=== PATIENT | female | born 1945 | race Caucasian/White ===

== ENCOUNTER 2020-07-29 09:07 | Outpatient (REF) | payer MEDICARE, SELFPAY ==
--- NOTE | ~2020-07-29 | MM_ITS ---
EXAMINATION: BONE DENSITOMETRY CLINICAL INDICATION: Age-related osteoporosis without current pathological fracture. COMPARISON: Baseline BD dated 12/05/2017. TECHNIQUE: Using a [employer]oneCast DXA System (software version: 13.1) manufactured by [employer], dual-energy x-ray absorptiometry was performed of the lumbar spine and left hip. The images are of good technical quality. Summary results are attached. FINDINGS: AP SPINE L1-L4: Current: BMD 0.765 g/cm2, Z-score -0.9, T-score -3.5, osteoporosis, 1.7% decrease from baseline (<5% change is not significant). Baseline: BMD 0.778 g/cm2. LEFT FEMUR, NECK: Current: BMD 0.579 g/cm2, Z-score -0.9, T-score -3.3, osteoporosis. Baseline: BMD 0.633 g/cm2. LEFT FEMUR, TOTAL: Current: BMD 0.623 g/cm2, Z-score -0.8, T-score -3.1, osteoporosis, 4.0% decrease from baseline (<5% change is not significant). Baseline: BMD 0.649 g/cm2. IDENTIFIED RISK FACTORS: Osteoporosis, height loss, family history (parental hip fracture), history of fracture (adult). Early menopause, secondary osteoporosis. HISTORY OF FRACTURE: Wrist. MEDICATIONS: Calcium supplements or multivitamin, vitamin D. MM/XR DEXA axial skeleton IMPRESSION: 1. DIAGNOSIS: Osteoporosis based on the lowest T-score value of -3.5 in the lumbar spine applying World Health Organization criteria. 2. 10-YEAR FRACTURE RISK PREDICTION, FRAX: Major osteoporotic fracture (clinical spine, forearm, hip or shoulder) 52.2%. Hip fracture 40.3%. 3. Treatment Recommendations: NOF guidelines recommend consideration for treatment in postmenopausal women and men age 50 and older presenting with the following: -A hip or vertebral (clinical or morphometric) fracture. -T-score less than or equal to -2.5 at the femoral neck or spine after appropriate evaluation to exclude secondary causes. -Low bone mass at the hip or spine and a 10-year fracture probability by FRAX of greater than or equal to 3% for hip fracture or greater than or equal to 20% for major osteoporotic fracture based on the [place] adapted WHO algorithm. 4. Other Recommendations: All treatment decisions require clinical judgment and consideration of individual patient factors, including patient preferences, comorbidities, previous drug use, risk factors not captured in the FRAX model (e.g. frailty, falls, vitamin D deficiency, increased bone turnover, interval significant decline in bone density) and possible under or overestimation of fracture risk by FRAX. Additional medical evaluation for secondary cause of low bone mineral density may be appropriate. FUTURE SCAN RECOMMENDATION: People with diagnosed cases of osteoporosis or at high risk for fracture should have regular bone mineral density tests. For patients eligible for Medicare, routine testing is allowed once every 2 years. The testing frequency can be increased to one year for patients who have rapidly progressing disease, those who are receiving or discontinuing medical therapy to restore bone mass, or have additional risk factors.
== END 2020-07-29 09:08 | disposition home or self-care (01) ==
LOC: HO.MAMMO 09:07
PROVIDERS: Visit Provider Internal Medicine
DX: M81.0 Age-related osteoporosis without current pathological fracture (principal); Z78.0 Asymptomatic menopausal state
CPT/HCPCS: 77080

== ENCOUNTER 2021-01-29 10:52 | Outpatient (REF) | payer MEDICARE, SELFPAY ==
--- NOTE | ~2021-01-29 | XR_ITS ---
EXAMINATION: XR CHEST CLINICAL INFORMATION: Pain in the posterior chest/back with inspiration. COMPARISON: None TECHNIQUE: 2 views of the chest were obtained. FINDINGS: Normal appearance of the cardiomediastinal silhouette. There is pulmonary hyperexpansion with biapical pleural thickening/scarring and diffuse interstitial prominence. There is a 1.3 cm radiopaque nodularity in the right lower lobe. No pleural effusion or pneumothorax. No acute osseous findings. Thoracic spondylosis. XR/XR chest 2V IMPRESSION: Hyperexpanded lungs with mild interstitial prominence raising the possibility of air trapping which could be seen with COPD or emphysema. There is a 1.3 cm pulmonary nodularity overlying the right lower lobe. Recommend further assessment of these interstitial changes and of the possible right lower lobe pulmonary nodule with a high-resolution chest CT. The report will be called to the ordering clinician by a [place] [facility] Physician Child Care Development Specialist.
[2021-01-29 11:03] LABS: MANUAL DIFF FLAG NO
[2021-01-29 12:06] LABS: Basophils Percent Auto 0.4 % (0-2); Eosinophils Percent Auto 0.6 % (0-4); Hematocrit 42.4 % (37.0-47.0); Hemoglobin 13.3 g/dl (12.0-16.0); Imm Gran Abs Auto 0.01 X10*3/uL (0.00-0.03); Imm Gran Pct Auto 0.2 % (0.0-0.4); Lymphocytes Absolute Auto 1.3 X10*3/uL (1.2-4.9); Lymphocytes Percent Auto 27.3 % (20-40); Mean Corpuscular HGB Conc 31.4 g/dl (31.0-35.0); Mean Corpuscular Hemoglobin 28.2 pg (27.0-33.0); Mean Corpuscular Volume 89.8 fL (80.0-98.0); Mean Platelet Volume 10.9 fL (9.4-12.3); Monocytes Absolute Auto 0.4 X10*3/uL (0.1-1.2); Monocytes Percent Auto 9.5 % (2-11); Neutrophils Absolute Auto 2.9 x10*3/uL (2.0-8.3); Platelet Count 206 X10*3/uL (160-400); Red Blood Count 4.72 X10*6/uL (4.20-5.50); Red Cell Distribution Width 13.9 % (11.0-16.0); White Blood Count 4.7 X10*3/uL (4.8-10.8)
[2021-01-29 12:28] LABS: Alanine Aminotransferase 9 U/L (0-31); Albumin Level 4.4 g/dL (3.5-5.0); Alkaline Phosphatase 64 U/L (39-117); Anion Gap 13 (12-20); Aspartate Amino Transferase 17 U/L (5-31); Bilirubin Total 0.7 mg/dL (0.0-1.0); Blood Urea Nitrogen 12 mg/dL (9-16); Calcium 9.4 mg/dL (8.4-10.2); Carbon Dioxide 26 mmol/L (22-29); Chloride 107 mmol/L (96-108); Cholesterol 226 mg/dL; Estimated Glomerular Filt Rate > 60; Glucose Fasting 81 mg/dL (60-99); HDL Cholesterol 71 mg/dL; LDL Cholesterol Calculated 132 mg/dl; Potassium 4.7 mmol/L (3.3-5.1); Sodium 141 mmol/L (135-145); Total Protein 6.9 g/dL (6.5-8.0); Triglycerides 119 mg/dL
[2021-01-29 12:48] LABS: Thyroid Stimulating Hormone 2.48 uIU/mL (0.32-4.0)
== END 2021-01-29 10:53 | disposition home or self-care (01) ==
LOC: HO.XRAY 10:52
PROVIDERS: PCP Internal Medicine; Visit Provider Internal Medicine
DX: Z00.00 Encounter for general adult medical examination without abnormal findings (principal); M54.50 Low back pain, unspecified; M54.6 Pain in thoracic spine; E03.9 Hypothyroidism, unspecified; R51.9 Headache, unspecified; E11.9 Type 2 diabetes mellitus without complications
CPT/HCPCS: 36415; 71046; 80048; 80053; 80061; 84443; 85025

== ENCOUNTER 2021-02-24 13:23 | Outpatient (REF) | payer MEDICARE, SELFPAY ==
--- NOTE | ~2021-02-24 | CT_ITS ---
EXAMINATION: CT CHEST WITHOUT CONTRAST CLINICAL INFORMATION: Abnormal findings on diagnostic imaging. COMPARISON: Chest film dated 01/29/2021 TECHNIQUE: Multidetector volumetric CT imaging of the chest was done. Axial MIP volume rendering provided. Sagittal and coronal reformatted images were obtained. This CT examination was performed using dose optimization techniques as appropriate, variously including the following: *Automated exposure control *Adjustment of mA and/or kV according to patient size (this includes techniques or standardized protocols for targeted exams where dose is matched to indication/reason for exam; i.e. extremities or head) *Use of iterative reconstruction technique DLP: 120 mGy-cm FINDINGS: BRINE ROOM LABORER: Unremarkable. The thoracic inlet is within normal limits. Partially visualized upper abdomen demonstrates 2 areas of low density in the region of the falciform ligament of the liver. One measuring 1.9 cm and another measuring 1.8 cm. These are low attenuation structures and may well represent cystic change. On the very last image, another probable small structure measuring 5 mm which cannot be adequately characterized. Centrally, there is no bulky adenopathy. This is a noncontrast study, but the hilar structures do not appear pathologically enlarged. Aneurysmal change of the ascending aorta. 3.6 x 3.5 cm. Imaging of the lung rvias. Right Lung: There is no significant infiltrate or effusion. Probable apical scarring which is somewhat asymmetric compared to the contralateral side. There are numerous small scattered areas of lung nodularity. The largest measures approximately 3 mm. Some of these are tubular and could represent bronchial plugging. Probable right basilar atelectasis or scarring. Left Lung: No significant infiltrate or effusion. Again, scattered areas of nodularity none of which are large. The largest may measure 4 mm. Image 60 of series 8. There is also a 4 mm nodule on image 66. The density in question on the chest film may well have represented the patient's nipple. Review of the bone windows does not demonstrate evidence for a bony lesion. Some mild loss of superior height at T3 likely minimal compression, age-indeterminate. Posterior height is well preserved. CT/CT chest wo con IMPRESSION: The density in question on chest film may well have represented the patient's nipple. No large nodule. Numerous scattered lung nodules are seen here. As described, some of these are tubular and may represent some bronchial plugging. No large area of nodularity. Probable apical scarring, right greater than left. Mild aneurysmal change of the ascending aorta. Recommendation is low-dose noncontrast CT study in 6 months for continued evaluation of the above findings Probable cystic change in the region of the falciform ligament in the liver but a smaller lesion more inferior which is incompletely imaged on the last image of the study. Consider ultrasound to evaluate the liver.
== END 2021-02-24 13:24 | disposition home or self-care (01) ==
LOC: HO.CT 13:23
PROVIDERS: PCP Internal Medicine; Visit Provider Internal Medicine
DX: R93.89 Abnormal findings on diagnostic imaging of other specified body structures (principal)
CPT/HCPCS: 71250

== ENCOUNTER 2021-09-02 10:58 | Outpatient (REF) | payer MEDICARE, SELFPAY ==
--- NOTE | ~2021-09-02 | CT_ITS ---
EXAMINATION: CT CHEST WITHOUT CONTRAST CLINICAL INFORMATION: Small pulmonary nodules. Follow-up. COMPARISON: CT chest noncontrast 02/24/2021, chest radiographs 01/29/2021 TECHNIQUE: Multidetector volumetric CT imaging of the chest was done. Axial MIP volume rendering provided. Sagittal and coronal reformatted images were obtained. This CT examination was performed using dose optimization techniques as appropriate, variously including the following: *Automated exposure control *Adjustment of mA and/or kV according to patient size (this includes techniques or standardized protocols for targeted exams where dose is matched to indication/reason for exam; i.e. extremities or head) *Use of iterative reconstruction technique DLP: 118 mGy-cm FINDINGS: LUNGS: Scattered isolated small bilateral nodularity under 4 mm are again noted. 2 nodules previously described are decreased, central medial left upper lobe, and central lateral right lower lobe, respectively. There is no interval mass or new nodularity or interval growth. No airspace consolidation or groundglass opacity. The central airways are clear. No bronchiectasis. MEDIASTINUM: No hilar or mediastinal adenopathy. Aorta are under 4 cm. Heart size normal. No pericardial effusion. PLEURA: Pleural parenchymal scarring apices, greater on right, stable AXILLA: No lymphadenopathy. UPPER ABDOMEN: Probable cyst hepatic dome under 2 cm stable. OSSEOUS STRUCTURES: Unremarkable. CT/CT chest wo con IMPRESSION: -No new or increasing nodularity or mass. -2 nodules are decreased in size from prior exam 02/24/2021. -No adenopathy or effusion. -Probable cyst hepatic dome stable. -Fleischner guidelines below. Reference: The Fleischner Society recommendations for management of incidentally detected pulmonary nodules in adults age 35 and greater are based on average nodule size and patient risk category. The recommendations do not apply to lung cancer screening, patients with immunosuppression, or patients with known primary cancer. Multiple solid nodules average size < 6 mm: Low Risk Patient: No routine follow-up. High Risk Patient: Optional CT at 12 months. Use most suspicious nodule as guide to management. Follow-up intervals may vary according to size and risk. .
== END 2021-09-02 10:59 | disposition home or self-care (01) ==
LOC: HO.CT 10:58
PROVIDERS: PCP Internal Medicine; Visit Provider Internal Medicine
DX: R91.1 Solitary pulmonary nodule (principal)
CPT/HCPCS: 71250

== ENCOUNTER 2021-09-16 11:17 | Outpatient (REF) | payer MEDICARE, SELFPAY ==
--- NOTE | ~2021-09-16 | US_ITS ---
EXAMINATION: US ABDOMEN COMPLETE CLINICAL INFORMATION: Unspecified abdominal pain. COMPARISON: None TECHNIQUE: Real-time imaging of the abdominal viscera. FINDINGS: PANCREAS: Normal. ABDOMINAL AORTA: Atherosclerotic disease. The proximal, mid, and distal segments are normal in caliber. INFERIOR VENA CAVA: Visualized portions are normal. LIVER: There are 3 cysts in the right lobe measuring 1.4 x 1.3 x 2 cm, 1.8 x 1 x 1.8 cm 0.8 x 0.6 x 0.7 cm. No other focal lesion. The liver is normal in size. The liver contour is normal. Parenchymal echogenicity is normal. There is no intrahepatic biliary duct dilatation seen. GALLBLADDER: The gallbladder is physiologically distended without evidence of stones, sludge, wall thickening or pericholecystic fluid. There is a 2 mm echogenic nonmobile nonshadowing density adjacent to the gallbladder wall questionable for a small polyp. COMMON BILE DUCT: Normal in caliber measuring 0.4 cm in diameter. RIGHT KIDNEY: Normal. No hydronephrosis. No renal calculi or focal parenchymal lesions. The kidney measures 8.7 cm in maximum dimension. LEFT KIDNEY: Normal. No hydronephrosis. No renal calculi or focal parenchymal lesions. The kidney measures 9.3 cm in maximum dimension. SPLEEN: Normal. The spleen measures 8.6 cm in maximum dimension. FREE FLUID: None. US/US abdomen complete IMPRESSION: Liver cysts. Question small gallbladder wall polyp.
== END 2021-09-16 11:18 | disposition home or self-care (01) ==
LOC: HO.US 11:17
PROVIDERS: Visit Provider Internal Medicine
DX: R10.9 Unspecified abdominal pain (principal)
CPT/HCPCS: 76700

== ENCOUNTER → 2021-12-03 14:00 | Outpatient (REF) | payer MEDICARE, SELFPAY ==
--- NOTE | 2021-12-03 14:07 | ECG_ITS ---
Test Reason : preop Blood Pressure : / mmHG Vent. Rate : 068 BPM Atrial Rate : 068 BPM P-R Int : 142 ms QRS Dur : 080 ms QT Int : 400 ms P-R-T Axes : 073 072 040 degrees QTc Int : 425 ms Normal sinus rhythm Normal ECG No previous ECGs available Referred By: Jorge Walton Electronically Signed By:CHANG CARRASCO
[2021-12-03 14:26] LABS: MANUAL DIFF FLAG NO
[2021-12-03 14:40] LABS: Basophils Percent Auto 0.4 % (0-2); Eosinophils Percent Auto 0.7 % (0-4); Hemoglobin 12.8 g/dl (12.0-16.0); Imm Gran Abs Auto 0.01 X10*3/uL (0.00-0.03); Imm Gran Pct Auto 0.2 % (0.0-0.4); Lymphocytes Percent Auto 21.9 % (20-40); Mean Corpuscular Hemoglobin 28.8 pg (27.0-33.0); Mean Corpuscular Volume 89.9 fL (80.0-98.0); Mean Platelet Volume 10.6 fL (9.4-12.3); Monocytes Absolute Auto 0.4 X10*3/uL (0.1-1.2); Monocytes Percent Auto 9.2 % (2-11); Neutrophils Percent Auto 67.6 % (45-73); Platelet Count 167 X10*3/uL (160-400); Red Blood Count 4.45 X10*6/uL (4.20-5.50); White Blood Count 4.5 X10*3/uL (4.8-10.8)
[2021-12-03 14:42] LABS: Prothrombin Time 11.7 SEC (10.0-13.1)
[2021-12-03 14:45] LABS: Partial Thromboplastin Time 37.2 SEC (26.0-36.4)
== END ==
LOC: HO.CARD 14:00
PROVIDERS: PCP Internal Medicine; Visit Provider Internal Medicine
DX: Z01.818 Encounter for other preprocedural examination (principal); Z13.0 Encounter for screening for diseases of the blood and blood-forming organs and certain disorders involving the immune mechanism
CPT/HCPCS: 36415; 85025; 85610; 85730; 93005

== ENCOUNTER 2022-04-05 11:20 | Outpatient (REF) | payer MEDICARE, SELFPAY ==
[2022-04-05 11:46] LABS: MANUAL DIFF FLAG NO
[2022-04-05 12:00] LABS: Basophils Percent Auto 0.5 % (0-2); Eosinophils Absolute Auto 0.1 X10*3/uL (0.0-0.4); Eosinophils Percent Auto 1.2 % (0-4); Hematocrit 44.3 % (37.0-47.0); Hemoglobin 14.4 g/dl (12.0-16.0); Imm Gran Abs Auto 0.04 X10*3/uL (0.00-0.03); Lymphocytes Percent Auto 24.4 % (20-40); Mean Corpuscular HGB Conc 32.5 g/dl (31.0-35.0); Mean Corpuscular Volume 89.1 fL (80.0-98.0); Mean Platelet Volume 10.5 fL (9.4-12.3); Monocytes Absolute Auto 0.3 X10*3/uL (0.1-1.2); Monocytes Percent Auto 7.4 % (2-11); Neutrophils Absolute Auto 2.7 x10*3/uL (2.0-8.3); Neutrophils Percent Auto 65.5 % (45-73); Platelet Count 176 X10*3/uL (160-400); Red Blood Count 4.97 X10*6/uL (4.20-5.50); Red Cell Distribution Width 13.6 % (11.0-16.0); White Blood Count 4.1 X10*3/uL (4.8-10.8)
[2022-04-05 12:49] LABS: Alanine Aminotransferase 11 U/L (0-31); Albumin Level 4.4 g/dL (3.5-5.0); Alkaline Phosphatase 76 U/L (39-117); Anion Gap 12 (12-20); Aspartate Amino Transferase 18 U/L (5-31); Bilirubin Total 0.9 mg/dL (0.0-1.0); Blood Urea Nitrogen 13 mg/dL (9-16); Calcium 9.6 mg/dL (8.4-10.2); Carbon Dioxide 29 mmol/L (22-29); Chloride 104 mmol/L (96-108); Cholesterol 222 mg/dL; Estimated Glomerular Filt Rate > 60; Glucose Fasting 91 mg/dL (60-99); HDL Cholesterol 74 mg/dL; LDL Cholesterol Calculated 129 mg/dl; Potassium 4.1 mmol/L (3.3-5.1); Sodium 141 mmol/L (135-145); Total Protein 6.8 g/dL (6.5-8.0); Triglycerides 99 mg/dL
[2022-04-05 13:09] LABS: Thyroid Stimulating Hormone 1.95 uIU/mL (0.32-4.0)
[2022-04-05 13:22] LABS: Vitamin B12 249 pg/mL (200-900)
== END 2022-04-05 11:21 | disposition home or self-care (01) ==
LOC: HO.LAB 11:20
PROVIDERS: PCP Internal Medicine; Visit Provider Internal Medicine
DX: E03.9 Hypothyroidism, unspecified (principal); D64.9 Anemia, unspecified; N28.9 Disorder of kidney and ureter, unspecified; E78.5 Hyperlipidemia, unspecified; R41.89 Other symptoms and signs involving cognitive functions and awareness
CPT/HCPCS: 36415; 80053; 80061; 82607; 84443; 85025

== ENCOUNTER 2024-01-31 09:52 | Outpatient (REF) | payer MEDICARE, SELFPAY ==
[2024-01-31 10:45] LABS: MANUAL DIFF FLAG NO
[2024-01-31 11:18] LABS: Basophils Percent Auto 0.5 % (0-2); Hematocrit 41.2 % (37.0-47.0); Hemoglobin 13.5 g/dl (12.0-16.0); Imm Gran Abs Auto 0.01 X10*3/uL (0.00-0.03); Imm Gran Pct Auto 0.2 % (0.0-0.4); Lymphocytes Absolute Auto 1.1 X10*3/uL (1.2-4.9); Mean Corpuscular HGB Conc 32.8 g/dl (31.0-35.0); Mean Corpuscular Hemoglobin 29.4 pg (27.0-33.0); Mean Corpuscular Volume 89.8 fL (80.0-98.0); Mean Platelet Volume 10.1 fL (9.4-12.3); Monocytes Absolute Auto 0.4 X10*3/uL (0.1-1.2); Monocytes Percent Auto 10.5 % (2-11); Neutrophils Absolute Auto 2.6 x10*3/uL (2.0-8.3); Neutrophils Percent Auto 60.8 % (45-73); Platelet Count 191 X10*3/uL (160-400); Red Blood Count 4.59 X10*6/uL (4.20-5.50); Red Cell Distribution Width 13.6 % (11.0-16.0); White Blood Count 4.2 X10*3/uL (4.8-10.8)
[2024-01-31 12:17] LABS: Alanine Aminotransferase 16 U/L (0-31); Albumin Level 4.3 g/dL (3.5-5.0); Alkaline Phosphatase 68 U/L (39-117); Anion Gap 11 (12-20); Aspartate Amino Transferase 25 U/L (5-31); Bilirubin Total 0.8 mg/dL (0.0-1.0); Blood Urea Nitrogen 14 mg/dL (9-16); Calcium 9.4 mg/dL (8.4-10.2); Carbon Dioxide 29 mmol/L (22-29); Chloride 106 mmol/L (96-108); Cholesterol 221 mg/dL (<200); Estimated Glomerular Filt Rate > 60; Glucose Fasting 97 mg/dL (60-99); HDL Cholesterol 78 mg/dL (>40); LDL Cholesterol Calculated 127 mg/dL (<100); Sodium 142 mmol/L (135-145); Thyroid Stimulating Hormone 1.87 uIU/mL (0.32-4.0); Total Protein 7.1 g/dL (6.5-8.0); Triglycerides 83 mg/dL (<150)
== END 2024-01-31 09:53 | disposition home or self-care (01) ==
LOC: HO.LAB 09:52
PROVIDERS: PCP Internal Medicine; Visit Provider Internal Medicine
DX: Z00.00 Encounter for general adult medical examination without abnormal findings (principal); Z13.0 Encounter for screening for diseases of the blood and blood-forming organs and certain disorders involving the immune mechanism; Z13.220 Encounter for screening for lipoid disorders; Z13.29 Encounter for screening for other suspected endocrine disorder
CPT/HCPCS: 36415; 80053; 80061; 84443; 85025; 96127; 99397

== ENCOUNTER 2024-01-31 09:52 | Outpatient (AMB) | payer MEDICARE, SELFPAY ==
[2024-01-31 09:56] VITALS: BP 122/80; BMI 16.5
--- NOTE | 2024-01-31 09:56 | A.OFFPC_ITS ---
Vital Signs 01/31/24 09:56 Height 5 ft 1 in Weight 87 lb 8 oz BMI 16.5 BP 122/80 Blood Pressure Location Lt brachial Position Sitting Intake Visit Reasons: Annual PE Retail Pharmacist Required: No Accompanied by: Self / Same As Patient Allergies No Known Allergies [No Known Allergies*] Allergy (Verified 01/31/24 09:57) Medication List - Last Reconciled 01/31/24 by Jorge Walton MD aspirin 325 mg PO DAILY PRN calcium carbonate (Calcium Antacid) 200 mg PO BID cholecalciferol (vitamin D3) 50 mcg PO DAILY doxycycline hyclate 50 mg PO Tobacco use date assessed: 01/31/24 Fall risk assessment: No Falls in past year Last assessed Fall Risk: 01/31/24 Dental Screening Dental Screen Date: 01/31/24 Did you have a dental visit in the last 12 months?: Yes Did you have a dental problem in the last 6 months where you did not have access to dental care?: No Was dental information given to patient?: Patient has dentist HPI Annual PE HPI Details healthy [facility] Medical History (Updated 01/31/24 @ 10:16 by Jorge Walton MD) Osteoporosis Surgical History History of surgery on right wrist History of hernia surgery Family History Mother No problems noted. Father No problems noted. Social History Housing: House Alcohol intake: never Patient Tobacco Use Status: Never used Tobacco e-Cigarette/Vaping Use: Never Used Second Hand Smoke Exposure: No service: No Current occupational status: retired Cognitive needs: No Hearing needs: No Vision needs: No Questionnaire PHQ-9 Over the last 2 weeks, how often have you been bothered by any of the following problems? 1. Little interest or pleasure in doing things: not at all 2. Feeling down, depressed, or hopeless: not at all 3. Trouble falling or staying asleep, or sleeping too much: not at all 4. Feeling tired or having little energy: not at all 5. Poor appetite or overeating: not at all 6. Feeling bad about yourself - or that you are a failure or have let yourself or your family down: not at all 7. Trouble concentrating on things, such as reading the newspaper or watching television: not at all 8. Moving or speaking so slowly that other people could have noticed. Or the opposite - being so fidgety or restless that you have been moving around a lot more than usual: not at all 9. Thoughts that you would be better off or of hurting yourself in some way: not at all Total score: 0 Depression Screening Interpretation: Negative Depression Screening Done: Yes Source: Developed by Drs. Man Gray, Lorenza Brooks, Stevie Serrano and colleagues, with an educational savanah from [employer]. Thrive Questionnaire Date Thrive assessed: 01/31/24 I am a: Patient What is your living situation today?: I have a steady place to live Within the past 12 months, did the food you bought not last and you didn't have the money to get more?: Never true Within the past 12 months, did you worry whether your food would run out before you got money to buy more?: Never true Do you have trouble paying for medicines?: No Do you have trouble getting transportation to medical appointments?: No Do you have trouble paying your heating and electricity bill?: No Do you have trouble taking care of your child, family member or friend?: I choose not to answer this question Do you have trouble with day-to-day activities such as bathing, preparing meals, shopping, managing finances, etc.?: No Are you currently unemployed and looking for a job?: No Are you interested in more education?: No Please select the resources that you would like help with: None Currently or been in a relationship where the following occur: No concerns reported THRIVE Score: 0 AUDIT C Alcohol Use Questionnaire (AUDIT-C) 1. How often do you have a drink containing alcohol?: Never Total Score: 0 CARIN-7 AMB Questionnaire CARIN-7 Date CARIN - 7 assessed: 01/31/24 Feeling nervous, anxious, or on edge: 0 = Not at all Not being able to stop or control worryin = Not at all Worrying too much about different things: 0 = Not at all Trouble relaxin = Not at all Being so restless that it is hard to sit still: 0 = Not at all Becoming easily annoyed or irritable: 1 = Several days Source: Developed by Drs. Man Gray, Lorenza Brooks, Stevie Serrano and colleagues, with an educational savanah from [employer]. Review of Systems Const Denies chills, Denies fatigue, Denies headache(s) and Denies weight loss Eyes Denies change in vision, Denies diplopia and Denies eye pain ENT Denies vertigo, Denies dizziness, Denies headache(s) and Denies nasal discharge Card Denies chest pain, Denies rapid heart rate and Denies dyspnea on exertion Resp Denies chest congestion, Denies cough, Denies pain with cough and Denies dyspnea on exertion GI Denies abdominal pain, Denies hematochezia and Denies change in bowel habits Musc Denies myalgias, Denies arthralgias and Denies joint swelling Skin/Breast Denies lesions and Denies unusual bruising Neuro Denies vertigo, Denies dizziness, Denies headache(s) and Denies focal weakness Endo Denies fatigue Physical exam (Primary Care) Vital Signs: Last Vital Signs BP 122/80 01/31/24 09:56 BMI result Body Mass Index 16.5 Tobacco/Smoking Status: Tobacco use Status Tobacco use date assessed 01/31/24 01/31/24 10:01 Patient Tobacco Use Status Never used Tobacco 01/31/24 10:01 e-Cigarette/Vaping Use Never Used 01/31/24 10:01 PHQ-9: PHQ-9 Score PHQ-9: Total score 0 01/31/24 10:01 Depression Screening Interpretation: Negative Thrive Assessment: Date of Thrive Assessment Date Thrive assessed 01/31/24 01/31/24 10:01 Currently or been in a relationship where the following occur: No concerns reported Const General: cooperative, healthy appearing and no acute distress Orientation/consciousness: oriented to person, oriented to place and oriented to time [facility] Head: Yes normal to inspection, Yes normocephalic and Yes atraumatic Mouth: Normal oral and palatal mucosa present and tongue normal Throat: Yes posterior oropharynx normal and Yes uvula midline Eyes General: appearance normal, both eyes and all related structures Neck Neck: Yes normal visual inspection, Yes full ROM and Yes no lymphadenopathy Thyroid: Thyroid normal Carotids: normal carotid upstroke Chest Chest palpation & inspection: normal inspection of the chest Resp Effort & Inspection: normal respiratory effort and able to speak in complete sentences Auscultation: clear to auscultation bilaterally Cardio Jugular venous distension: no JVD Palpation: normal PMI Rate: regular rate Rhythm: regular rhythm Heart sounds: S1 normal heart sound present and S2 normal heart sound present GI Inspection: Yes normal to inspection Palpation (GI): Soft to palpation and No hepatosplenomegaly present Auscultation: normal bowel sounds General: Yes no CVA tenderness Back/Spine/Pelvis Back: no CVA tenderness Skin General skin exam: no rashes or lesions noted Neuro General: oriented to person, oriented to place and oriented to time Extrem General: Yes normal to inspection and Yes full ROM Coding Level of Care Code Est Pt Prev Care >65y(79068) Diagnoses Physical exam Z00.00 Assessment & Plan Assessment & Plan (1) Physical exam: Code(s): Z00.00 - Encounter for general adult medical examination without abnormal findings Category: Medical Plan: do labs Orders: Orders Complete Blood Count Auto Diff Today Z13.0 - Encounter for screening for diseases of the blood and blood-forming organs and certain disorders involving the immune mechanism Comprehensive [place]. Panel Fast Today Z13.9 - Encounter for screening, unspecified Lipid Panel Today Z13.220 - Encounter for screening for lipoid disorders Thyroid Stimulating Hormone Today Z13.29 - Encounter for screening for other suspected endocrine disorder Referrals Cologuard Test Z12.11 - Encounter for screening for malignant neoplasm of colon, Z12.12 - Encounter for screening for malignant neoplasm of rectum
== END 2024-01-31 11:18 | disposition home or self-care (01) ==
PROVIDERS: PCP Internal Medicine; Visit Provider Internal Medicine
DX: Z00.00 Encounter for general adult medical examination without abnormal findings (principal)

== ENCOUNTER 2024-06-12 07:51 | Outpatient (REF) | payer MEDICARE, SELFPAY ==
--- OUTSIDE RECORDS SUMMARY | 2024-06-12 09:22 | XMS_ITS | Clinical Summary ---
Author Organization [facility] Address [address] [place] [address] Care Team Providers Care Refueling Ramp Attendant Name Role Phone Jorge Walton Primary Care Provider [phone] Allergies No known active allergies Medications doxycycline [...] age to complete this topic Care Teams Refueling Ramp Attendant Relationship Specialty Start Date End Date Jorge Walton [address] [place] [address] [place] [id number] PCP - General Internal Medicine 09/25/23
--- OUTSIDE RECORDS SUMMARY | 2024-06-12 09:22 | XMS_ITS | Referral Summary ---
Author Organization [facility] Address [address] [place] [address] Care Team Providers Care Butter Liquefier Name Role Phone Jorge Walton Primary Care Provider [phone] Allergies No known active allergies Medications doxycycline [...] of Treatment Not on file Care Teams Butter Liquefier Relationship Specialty Start Date End Date Jorge Walton [address] [place] [address] [place] [id number] PCP - General Internal Medicine 09/25/23
[2024-06-12 10:20] LABS: Vitamin D 25-OH Total 61.3 ng/mL (>30)
[2024-06-12 10:27] LABS: Folate 13.8 ng/mL (> or = 4.0); Vitamin B12 545 pg/mL (200-900)
== END 2024-06-12 07:52 | disposition home or self-care (01) ==
LOC: HO.LAB 07:51
PROVIDERS: PCP Internal Medicine
DX: R03.0 Elevated blood-pressure reading, without diagnosis of hypertension (principal); R91.1 Solitary pulmonary nodule; M81.0 Age-related osteoporosis without current pathological fracture; L71.9 Rosacea, unspecified; I73.00 Raynaud's syndrome without gangrene; H81.09 Meniere's disease, unspecified ear; Z00.00 Encounter for general adult medical examination without abnormal findings
CPT/HCPCS: 36415; 82306; 82607; 82746; 96127; 99212

== ENCOUNTER 2024-06-12 07:51 | Outpatient (AMB) | payer MEDICARE, SELFPAY ==
--- OUTSIDE RECORDS SUMMARY | 2024-06-12 07:55 | XMS_ITS | Clinical Summary ---
Author Organization [facility] Address [address] [place] [address] Care Team Providers Care Wire Inspector Name Role Phone Jorge Walton Primary Care Provider [phone] Allergies No known active allergies Medications doxycycline hyclate (VIBRAMYCIN) 50 mg capsule PLEASE SEE ATTACHED FOR DETAILED DIRECTIONS 4 Active clobetasoL (TEMOVATE) 0.05% cream SMARTSIG:[place] 3 Times a Week 3 Active Active Problems Problem Noted Date Diagnosed Date Facial aging 11/28/2023 Social History Tobacco Use Types Packs/Day Years Used Date Smoking Tobacco: Never Assessed Comments Unknown Sex and Gender Information Value Date Recorded Sex Assigned at Female 11/21/2023 8:01 PM EDT Legal Sex Female 12:55 PM EDT Gender Identity Female 11/21/2023 8:01 PM EDT Sexual Orientation Straight 11/21/2023 8: 01 PM EDT Plan of Treatment Health Maintenance Due Date Last Done Comments Hepatitis C Screening 1945 DTaP,Tdap,and Td Vaccines (1 - Tdap) 1968 Osteoporosis Screening 1996 Zoster Vaccines (3 of 3) 05/10/2018 03/15/2018, 12/11 Pneumococcal Vaccine: 50+ Years (2 of 2 - PCV) 11/24/2018 11/24/2017 RSV Vaccine (60+ years old and patients) (1 - 1-dose 75+ series) 2021 COVID-19 Vaccine ( season) 2023 03/23/2021, 06/29/2020, 06/06/2020 Alcohol/Substance Use Screening 03/13/2024 Depression Screening and Follow-Up 03/13/2024 Health Care Proxy Review 03/13/2024 Social Drivers of Health Annual Screening 03/13/2024 Influenza Vaccine (Season Ended) 2024 11/22/2021, 12/15/2020, 12/16/2019, Additional history exists Hepatitis B Vaccines Aged Out No long er eligible based on patient's age to complete this topic Care Teams Wire Inspector Relationship Specialty Start Date End Date Jorge Walton [address] [place] [address] [place] [id number] PCP - General Internal Medicine 09/25/23
--- OUTSIDE RECORDS SUMMARY | 2024-06-12 07:55 | XMS_ITS | Referral Summary ---
Author Organization [facility] Address [address] [place] [address] Care Team Providers Care Microstrategy Developer Name Role Phone Jorge Walton Primary Care Provider [phone] Allergies No known active allergies Medications doxycycline hyclate (VIBRAMYCIN) 50 mg capsule PLEASE SEE ATTACHED FOR DETAILED DIRECTIONS 4 Active clobetasoL (TEMOVATE) 0.05% cream SMARTSIG:[place] 3 Times a Week 3 Active Active [...] 8: 01 PM EDT Plan of Treatment Not on file Care Teams Microstrategy Developer Relationship Specialty Start Date End Date Jorge Walton [address] [place] [address] [place] [id number] PCP - General Internal Medicine 09/25/23
--- NOTE | 2024-06-12 07:59 | A.OFFPC_ITS ---
Vital Signs 06/12/24 08:00 Height 5 ft 1 in Weight 89 lb BMI 16.8 BP 124/62 Blood Pressure Location Lt brachial Position Sitting Pulse 64 Pulse Source Pulse Oximeter Pulse Oximetry (%) 100 Oxygen Delivery Method Room Air Intake Visit Reasons: [facility]NE - From [facility] Allergies No Known Allergies [No Known Allergies*] Allergy (Verified 06/12/24 08:16) Medication List - Last Reconciled 06/12/24 by Mackenzie De La Garza PA-C aspirin 325 mg PO DAILY PRN cholecalciferol (vitamin D3) 50 mcg PO DAILY doxycycline hyclate 50 mg PO vitamins A,C,C-ewtu-vygvug 4,296 mcg-226 mg-90 mg (PreserVision AREDS) 1 cap PO DAILY Tobacco use date assessed: 06/12/24 Fall risk assessment: No Falls in past year Last assessed Fall Risk: 06/12/24 Dental Screening Dental Screen Date: 06/12/24 Did you have a dental visit in the last 12 months?: Yes Did you have a dental problem in the last 6 months where you did not have access to dental care?: No Was dental information given to patient?: Patient has dentist HPI [facility] - From [facility] HPI Details 79-year-old female with past medical his tory of osteoporosis last seen by Dr. Walton 01/2024 coming in for transfer of care. Presenting for a wellness visit and follow-up on chronic conditions. The patient has a long-standing history of osteoporosis with limitations in using conventional treatments due to difficulty swallowing and adverse reactions. A previous bone density test dated to 2020 indicates she is due for reassessment. Raynaud's phenomenon intermittently affects her, with symptoms triggered by cold exposure. She experiences M?ni?re's disease with rare episodes of dizziness, managed conservatively. She has not completed a recommended Cologuard test due to reluctance, although it could offer value given her age group despite Medicare guidelines delaying routine colorectal cancer screening after age 75. FOR[facility]LY [facility], [facility] Medical History Osteoporosis Surgical History History of surgery on right wrist History of hernia surgery Family History Mother No problems noted. Father No problems noted. Social History Housing: House Alcohol intake: never Patient Tobacco Use Status: Never used Tobacco Tobacco use type: Cigarette e-Cigarette/Vaping Use: Never Used Second Hand Smoke Exposure: No service: No Current occupational status: retired Cognitive needs: No Hearing needs: No Vision needs: Yes Questionnaire PHQ-9 Over the last 2 weeks, how often have you been bothered by any of the following problems? 1. Little interest or pleasure in doing things: not at all 2. Feeling down, depressed, or hopeless: not at all 3. Trouble falling or staying asleep, or sleeping too much: not at all 4. Feeling tired or having little energy: not at all 5. Poor appetite or overeating: not at all 6. Feeling bad about yourself - or that you are a failure or have let yourself or your family down: not at all 7. Trouble concentrating on things, such as reading the newspaper or watching television: not at all 8. Moving or speaking so slowly that other people could have noticed. Or the opposite - being so fidgety or restless that you have been moving around a lot more than usual: not at all 9. Thoughts that you would be better off or of hurting yourself in some way: not at all Total score: 0 Depression Screening Interpretation: Negative Depression Screening Done: Yes 11188 - PHQ-9 Billing: Yes Source: Developed by Drs. Man Gray, Lorenza Brooks, Stevie Serrano and colleagues, with an educational savanah from [employer]. Thrive Questionnaire Date Thrive assessed: 06/12/24 I am a: Patient What is your living situation today?: I choose not to answer this question Within the past 12 months, did the food you bought not last and you didn't have the money to get more?: I choose not to answer this question Within the past 12 months, did you worry whether your food would run out before you got money to buy more?: I choose not to answer this question Do you have trouble paying for medicines?: I choose not to answer this question Do you have trouble getting transportation to medical appointments?: I choose not to answer this question Do you have trouble paying your heating and electricity bill?: I choose not to answer this question Do you have trouble taking care of your child, family member or friend?: I choose not to answer this question Do you have trouble with day-to-day activities such as bathing, preparing meals, shopping, managing finances, etc.?: I choose not to answer this question Are you currently unemployed and looking for a job?: I choose not to answer this question Are you interested in more education?: I choose not to answer this question Please select the resources that you would like help with: None Currently or been in a relationship where the following occur: I choose not to answer THRIVE Score: 0 AUDIT C Alcohol Use Questionnaire (AUDIT-C) 1. How often do you have a drink containing alcohol?: Never Total Score: 0 CARIN-7 AMB Questionnaire CARIN-7 Date CARIN - 7 assessed: 06/12/24 Feeling nervous, anxious, or on edge: 0 = Not at all Not being able to stop or control worryin = Not at all Worrying too much about different things: 0 = Not at all Trouble relaxin = Not at all Being so restless that it is hard to sit still: 0 = Not at all Becoming easily annoyed or irritable: 1 = Several days Feeling afraid as if something awful might happen: 0 = Not at all Total CARIN-7 score (0-4 normal; 5-9 mild; 10-14 moderate; 15-21 severe): 1 Source: Developed by Drs. Man Gray, Lorenza Brooks, Stevie Serrano and colleagues, with an educational savanah from [employer]. CARIN-7 Assessment Billing CARIN-7 Assessment Tool: CARIN-7 Assessment 25011 Review of Systems Const Denies body aches, Denies chills, Denies fever(s), Denies headache(s) and Denies poor appetite Eyes Reports no additional complaints ENT Denies dizziness and Denies headache(s) Card Denies chest pain, Denies syncope, Denies lightheadedness and Denies dyspnea Resp Denies cough and Denies dyspnea GI Denies abdominal pain, Denies constipation, Denies diarrhea, Denies nausea and Denies vomiting Reports no additional complaints Musc Reports no additional complaints and Denies abnormal gait Skin/Breast Reports system reviewed and no additional complaints, except as documented Neuro Denies abnormal gait, Denies dizziness, Denies syncope and Denies headache(s) Psych Reports no additional complaints Physical exam (Primary Care) Vital Signs: Last Vital Signs Pulse 64 06/12/24 08:00 BP 124/62 06/12/24 08:00 Pulse Ox 100 06/12/24 08:00 Oxygen Delivery Method Room Air 06/12/24 08:00 BMI result Body Mass Index 16.8 Tobacco/Smoking Status: Tobacco use Status Tobacco use date assessed 06/12/24 06/12/24 08:10 Patient Tobacco Use Status Never used Tobacco 06/12/24 08:00 Tobacco use type Cigarette 06/12/24 08:03 e-Cigarette/Vaping Use Never Used 06/12/24 08:00 PHQ-9: PHQ-9 Score PHQ-9: Total score 0 06/12/24 08:10 Depression Screening Interpretation: Negative Thrive Assessment: Date of Thrive Assessment Date Thrive assessed 06/12/24 06/12/24 08:10 Currently or been in a relationship where the following occur: I choose not to answer Const General: cooperative, healthy appearing, comfortable and no acute distress Orientation/consciousness: patient oriented x3 HENMT Head: Yes normocephalic Ears: hearing grossly normal bilaterally General nose exam: Normal external nose present Eyes General: appearance normal, both eyes and all related structures Conjunctivae: conjunctivae normal Neck Neck: Yes full ROM and Yes no lymphadenopathy Resp Effort & Inspection: normal respiratory effort Auscultation: clear to auscultation bilaterally, no crackles, no rales, no rhonchi and no wheezes Cardio Rate: regular rate Rhythm: regular rhythm Skin General skin exam: no rashes or lesions noted Neuro General: patient oriented x3 Gait exam (Neuro): Normal gait present Extrem General: Yes normal to inspection, Yes full ROM and No edema Psych Affect: normal affect Attitude: cooperative Insight: Good insight present (Psych) Judgement: Good judgement present (Psych) Coding Level of Care Code Est Pt Level 4 (02191) Diagnoses Elevated BP without diagnosis of hypertension R03.0 Pulmonary nodule R91.1 Osteoporosis M81.0 Rosacea L71.9 Raynauds phenomenon I73.00 Meniere disease H81.09 Screening for colorectal cancer Z12.11; Z12.12 Additional Codes CARIN-7 Assessment Billing - CARIN-7 Assessment Tool: CARIN-7 Assessment 05378 ([id number]) PHQ-9 - 01887 - PHQ-9 Billing: Yes ([id number]) Assessment & Plan Assessment & Plan (1) Elevated BP without diagnosis of hypertension: Code(s): R03.0 - Elevated blood-pressure reading, without diagnosis of hypertension Category: Medical Plan: Avoid salt intake and encourage healthy diet and regular exercise. (2) Pulmonary nodule: Comment: Multiple solid nodules average size < 6 mm: Low Risk Patient: No routine follow-up. High Risk Patient: Optional CT at 12 months. Code(s): R91.1 - Solitary pulmonary nodule Category: Medical Plan: Last CT 2021 showing multiple pulmonary nodules. Patient is low risk and further CT was not pursued. Patient remains asymptomatic at this time, continue to monitor. (3) Osteoporosis: Comment: 40 min reviewing chart evaluating patient and documenting Code(s): M81.0 - Age-related osteoporosis without current pathological fracture Category: Medical Plan: Patient has previous diagnosis of osteoporosis as seen on bone density scan 2020. I did inform patient she is due for bone density but she is declining further imaging at this time. She agrees to reach out when she would like to have this imaging done. She is declining calcium supplementation and does not want to increase dietary calcium. I did offer referral to endocrinology which was declined today. (4) Rosacea: Code(s): L71.9 - Rosacea, unspecified Category: Medical Plan: Patient currently following with prenatal genetic counselor and is on doxycycline (5) Raynauds phenomenon: Code(s): I73.00 - Raynaud's syndrome without gangrene Category: Medical Plan: Managed conservatively patient states she will have random episodes. (6) Meniere disease: Code(s): H81.09 - Meniere's disease, unspecified ear Category: Medical Plan: Has not had symptoms in quite some time. Advised low-salt diet. Continue to monitor symptoms as they worsen or become more frequent to reach out to the office. (7) Screening for colorectal cancer: Code(s): Z12.11 - Encounter for screening for malignant neoplasm of colon; Z12.12 - Encounter for screening for malignant neoplasm of rectum Category: Medical Plan: Patient has not yet completed a colonoscopy she was sent for Cologuard box at her last visit with Dr. Walton. Patient is encouraged to complete the box. Plan Plan to follow up in January for annual exam or sooner if new problems arise. Blood work is up-to-date and has been reviewed today plan to repeat in January. This note was constructed using voice recognition software. While every effort has been made to ensure accuracy and ham sawyer, still areas may have been included sometimes these areas may affect the content or meeting of the given symptoms. Total time spent caring for the patient today was 20 minutes. This includes time spent before the visit reviewing the chart, time spent during the visit, and time spent after the visit and documentation. Patient was informed and verbally consented to the use of an ambient scribe for clinic note documentation during this visit. Orders: Orders Vitamin B12 and Folate Today Z00.00 - Encounter for general adult medical examination without abnormal findings Vitamin D 25-OH Total Today Z00.00 - Encounter for general adult medical examination without abnormal findings
[2024-06-12 08:00] VITALS: BP 124/62; PULSE 64; O2SAT 100; BMI 16.8
== END 2024-06-12 08:38 | disposition home or self-care (01) ==
LOC: HO.HMCH 07:52
PROVIDERS: PCP Internal Medicine
DX: R03.0 Elevated blood-pressure reading, without diagnosis of hypertension (principal); R91.1 Solitary pulmonary nodule; M81.0 Age-related osteoporosis without current pathological fracture; L71.9 Rosacea, unspecified; I73.00 Raynaud's syndrome without gangrene; H81.09 Meniere's disease, unspecified ear; Z12.11 Encounter for screening for malignant neoplasm of colon; Z12.12 Encounter for screening for malignant neoplasm of rectum

== ENCOUNTER 2025-02-04 09:11 | Outpatient (AMB) | payer MEDICARE, SELFPAY ==
[2025-02-04 09:15] VITALS: BP 130/70; PULSE 72; TEMP 36.7; O2SAT 99; BMI 15.9
--- NOTE | 2025-02-04 09:15 | A.OFFPC_ITS ---
Vital Signs 02/04/25 09:15 Height 5 ft 1 in Weight 84 lb 6 oz BMI 15.9 BP 130/70 Blood Pressure Location Lt brachial Position Sitting Pulse 72 Pulse Source Pulse Oximeter Temp 98.1 F Temp Source Temporal Artery Scan Pulse Oximetry (%) 99 Oxygen Delivery Method Room Air Intake Visit Reasons: Annual Exam Allergies No Known Allergies (No Known Allergies*) Allergy (Verified 02/04/25 09:36) Medication List - Last Reconciled 02/04/25 by Mackenzie De La Garza PA-C aspirin 325 mg PO DAILY PRN cholecalciferol (vitamin D3) 50 mcg PO DAILY doxycycline hyclate 50 mg PO vitamins A,C,D-oelh-agifrj 4,296 mcg-226 mg-90 mg (PreserVision AREDS) 1 cap PO DAILY Tobacco use date assessed: 06/12/24 Fall risk assessment: No Falls in past year Last assessed Fall Risk: 06/12/24 Dental Screening Dental Screen Date: 06/12/24 Did you have a dental visit in the last 12 months?: Yes Did you have a dental problem in the last 6 months where you did not have access to dental care?: No Was dental information given to patient?: Patient has dentist HPI Annual Exam HPI Details 79-year-old female with past medical his tory of osteoporosis last seen 06/2024 coming in for annual exam. Presenting for an annual wellness examination. The patient has a history of two pulmonary nodules identified on a 2021 CT scan, which were noted to be decreasing in size compared to prior examinations. The radiology report at that time did not recommend follow-up for a low-risk patient. The patient's risk factors include a history of asthma and a family history of lung cancer in a brother who smoked, though the patient's own smoking history is minimal and remote. Approximately one month ago, the patient sustained an injury to the left foot after a fall from a crouched position. An emergency room visit ruled out any fractures, and the foot is now mostly healed, with only minor discomfort when descending stairs but otherwise pain has resolved. cologuard: 12/2024 neg mammogram: declined DEXA: declined vaccines: UTD and TD given today PFSH Medical History Osteoporosis Surgical History History of surgery on right wrist History of hernia surgery Family History Mother No problems noted. Father No problems noted. Social History Housing: House Alcohol intake: never Patient Tobacco Use Status: Never used Tobacco Tobacco use type: Cigarette e-Cigarette/Vaping Use: Never Used Second Hand Smoke Exposure: No service: No Current occupational status: retired Cognitive needs: No Hearing needs: No Vision needs: Yes Questionnaire PHQ-9 Over the last 2 weeks, how often have you been bothered by any of the following problems? 1. Little interest or pleasure in doing things: several days 2. Feeling down, depressed, or hopeless: not at all 3. Trouble falling or staying asleep, or sleeping too much: not at all 4. Feeling tired or having little energy: not at all 5. Poor appetite or overeating: not at all 6. Feeling bad about yourself - or that you are a failure or have let yourself or your family down: not at all 7. Trouble concentrating on things, such as reading the newspaper or watching television: not at all 8. Moving or speaking so slowly that other people could have noticed. Or the opposite - being so fidgety or restless that you have been moving around a lot more than usual: not at all 9. Thoughts that you would be better off or of hurting yourself in some way: not at all Total score: 1 Depression Screening Interpretation: Negative Depression Screening Done: Yes 77962 - PHQ-9 Billing: Yes Source: Developed by Drs. Man Gray, Lorenza Brooks, Stevie Serrano and colleagues, with an educational savanah from [employer]. Thrive Questionnaire Date Thrive assessed: 06/06/24 I am a: Patient What is your living situation today?: I choose not to answer this question Within the past 12 months, did the food you bought not last and you didn't have the money to get more?: I choose not to answer this question Within the past 12 months, did you worry whether your food would run out before you got money to buy more?: I choose not to answer this question Do you have trouble paying for medicines?: I choose not to answer this question Do you have trouble getting transportation to medical appointments?: I choose not to answer this question Do you have trouble paying your heating and electricity bill?: I choose not to answer this question Do you have trouble taking care of your child, family member or friend?: I choose not to answer this question Do you have trouble with day-to-day activities such as bathing, preparing meals, shopping, managing finances, etc.?: I choose not to answer this question Are you currently unemployed and looking for a job?: I choose not to answer this question Are you interested in more education?: I choose not to answer this question Please select the resources that you would like help with: None Currently or been in a relationship where the following occur: I choose not to answer THRIVE Score: 0 AUDIT C Alcohol Use Questionnaire (AUDIT-C) 1. How often do you have a drink containing alcohol?: Never 3. How often do you have six or more drinks on one occasion?: Never Total Score: 0 CARIN-7 AMB Questionnaire CARIN-7 Date CARIN - 7 assessed: 06/12/24 Feeling nervous, anxious, or on edge: 0 = Not at all Not being able to stop or control worryin = Not at all Worrying too much about different things: 0 = Not at all Trouble relaxin = Not at all Being so restless that it is hard to sit still: 0 = Not at all Becoming easily annoyed or irritable: 0 = Not at all Feeling afraid as if something awful might happen: 0 = Not at all Total CARIN-7 score (0-4 normal; 5-9 mild; 10-14 moderate; 15-21 severe): 0 Source: Developed by Drs. Man Gray, Lorenza Brooks, Stevie Serrano and colleagues, with an educational savanah from [employer]. CARIN-7 Assessment Billing CARIN-7 Assessment Tool: CARIN-7 Assessment 40056 Review of Systems Const Denies body aches, Denies fatigue, Denies fever(s), Denies frequent falls, Denies headache(s) and Denies weakness Eyes Reports no additional complaints and Denies change in vision ENT Denies dysphagia, Denies dizziness, Denies facial pain, Denies headache(s), Denies nasal congestion and Denies odynophagia Card Denies chest pain, Denies syncope, Denies irregular heart rhythm, Denies leg edema, Denies lightheadedness and Denies dyspnea Resp Denies cough and Denies dyspnea GI Denies abdominal pain, Denies constipation, Denies dysphagia, Denies dyspepsia, Denies diarrhea, Denies nausea, Denies odynophagia and Denies vomiting Denies urinary frequency, Denies dysuria, Denies urinary hesitancy and Denies urinary urgency Musc Denies back pain and Denies myalgias Skin/Breast Reports system reviewed and no additional complaints, except as documented Neuro Denies dizziness, Denies syncope, Denies frequent falls, Denies headache(s) and Denies weakness Psych Reports no additional complaints Endo Denies fatigue Physical exam (Primary Care) Vital Signs: Last Vital Signs Temp 98.1 F 02/04/25 09:15 Pulse 72 02/04/25 09:15 BP 130/70 02/04/25 09:15 Pulse Ox 99 02/04/25 09:15 Oxygen Delivery Method Room Air 02/04/25 09:15 BMI result Body Mass Index 15.9 Tobacco/Smoking Status: Tobacco use Status Tobacco use date assessed 06/12/24 02/04/25 09:16 Patient Tobacco Use Status Never used Tobacco 02/04/25 09:16 Tobacco use type Cigarette 02/04/25 09:16 e-Cigarette/Vaping Use Never Used 02/04/25 09:16 PHQ-9: PHQ-9 Score PHQ-9: Total score 1 02/04/25 09:35 Depression Screening Interpretation: Negative Thrive Assessment: Date of Thrive Assessment Date Thrive assessed 06/06/24 02/04/25 09:16 Currently or been in a relationship where the following occur: I choose not to answer Const General: cooperative, healthy appearing, comfortable and no acute distress Orientation/consciousness: patient oriented x3 HENMT Head: Yes normocephalic Ears: hearing grossly normal bilaterally, external ears normal, TM's normal bilaterally and EAC's normal General nose exam: Normal external nose present Face and sinus: Yes normal facial exam and Yes sinuses nontender Mouth: Normal oral and palatal mucosa present and tongue normal Throat: Yes posterior oropharynx normal Eyes General: appearance normal, both eyes and all related structures Conjunctivae: conjunctivae normal Pupils: Equal, round and reactive pupils present EOM: EOMs intact bilaterally and No Nystagmus present Neck Neck: Yes normal visual inspection, Yes full ROM and Yes no lymphadenopathy Chest Chest palpation & inspection: normal inspection of the chest Resp Effort & Inspection: normal respiratory effort Auscultation: clear to auscultation bilaterally, no crackles, no rales, no rhonchi, no wheezes and breath sounds present Cardio Rate: regular rate Rhythm: regular rhythm Peripheral pulses: radial pulses present and dorsalis pedis present GI Inspection: Yes normal to inspection and No Abdominal wall edema Palpation (GI): Soft to palpation, not firm and nontender Auscultation: normal bowel sounds Rectal Exam - Female: deferred General: Yes no CVA tenderness Back/Spine/Pelvis Back: no CVA tenderness Skin General skin exam: no rashes or lesions noted Neuro General: patient oriented x3 Cranial nerves: Yes Equal, round and reactive pupils present, Yes Midline tongue present, Yes Ability to bilaterally elevate shoulders present and No Nystagmus present Gait exam (Neuro): Normal gait present Extrem General: Yes normal to inspection, Yes full ROM, No no pedal edema and No edema Psych Speech and movement: Normal speech and movement present Affect: normal affect Insight: Good insight present (Psych) Judgement: Good judgement present (Psych) Immunizations Tenivac (PF) 5 Lf unit-2 Lf unit/0.5 mL intramuscular syringe Performing Provider: Mackenzie De La Garza PA-C [facility] Administered by: DESEAN Mcghee on 02/04/25 10:02 Dose Route Admin Location Dispensed Lot Number Expiration Date MEC Master Lay Out Specialist 0.5 mL IM Left Deltoid 0.5 mL [id number] 05/11/26 04117-104-01 [employer] Total Dispensed Waste 0.5 mL 0 % VIS Given Date VIS Provided VIS Publication Date 02/04/25 Single Vaccine 20 Eligibility Eligibility Date Funding Source Not [facility] Eligible 02/04/25 Private Coding Level of Care Code Est Pt Prev Care >65y(78244) Diagnoses Physical exam Z00.00 Elevated BP without diagnosis of hypertension R03.0 Raynauds phenomenon I73.00 Osteoporosis M81.0 Pulmonary nodule R91.1 Rosacea L71.9 Meniere disease H81.09 Lichen sclerosus L90.0 Additional Codes CARIN-7 Assessment Billing - CARIN-7 Assessment Tool: CARIN-7 Assessment 50393 ([id number]) PHQ-9 - 38792 - PHQ-9 Billing: Yes ([id number]) Assessment & Plan Assessment & Plan (1) Physical exam: Code(s): Z00.00 - Encounter for general adult medical examination without abnormal findings Category: Medical Plan: The patient presents for an annual wellness visit. Health maintenance topics were reviewed, including screening and immunizations. The patient agreed to receive a Td vaccine, as the last one was administered in 2013. Orders were placed for annual fasting lab work, which the patient planned to complete today. Follow-up is scheduled for one year, pending normal lab results. (2) Elevated BP without diagnosis of hypertension: Code(s): R03.0 - Elevated blood-pressure reading, without diagnosis of hypertension Category: Medical Plan: Avoid salt intake and encourage healthy diet and regular exercise. (3) Raynauds phenomenon: Code(s): I73.00 - Raynaud's syndrome without gangrene Category: Medical Plan: Managed conservatively patient states she will have random episodes. (4) Osteoporosis: Comment: 40 min reviewing chart evaluating patient and documenting Code(s): M81.0 - Age-related osteoporosis without current pathological fracture Category: Medical Plan: The patient declined a bone density screening at this visit. A discussion was held regarding treatments for osteoporosis, including injectable options like Evenity and Prolia, which promote bone rebuilding. An offer for a referral to endocrinology was made, but the patient declined at this time. The patient will notify the practice if a decision is made to proceed with the screening. Recommend light weight bearing exercises and increasing dietary intake of Calcium. (5) Pulmonary nodule: Comment: Multiple solid nodules average size < 6 mm: Low Risk Patient: No routine follow-up. High Risk Patient: Optional CT at 12 months. Code(s): R91.1 - Solitary pulmonary nodule Category: Medical Plan: Last CT 2021 showing multiple pulmonary nodules. Patient is low risk and further CT was not pursued. Patient remains asymptomatic at this time, continue to monitor. (6) Rosacea: Code(s): L71.9 - Rosacea, unspecified Category: Medical Plan: Patient currently following with sheet ironworker and is on doxycycline (7) Meniere disease: Code(s): H81.09 - Meniere's disease, unspecified ear Category: Medical Plan: Has not had symptoms in quite some time. Advised low-salt diet. Continue to monitor symptoms as they worsen or become more frequent to reach out to the office. (8) Lichen sclerosus: Comment: [facility] Code(s): L90.0 - Lichen sclerosus et atrophicus Category: Medical Plan: Continue to follow with Derm. Plan This note was constructed using voice recognition software. While every effort has been made to ensure accuracy and consumer affairs manager, still areas may have been included sometimes these areas may affect the content or meeting of the given symptoms. Total time spent caring for the patient today was 30 minutes. This includes time spent before the visit reviewing the chart, time spent during the visit, and time spent after the visit and documentation. Patient was informed and verbally consented to the use of an ambient scribe for clinic note documentation during this visit. Orders: Orders Td Immunization Today Z23 - Encounter for immunization TSH reflex Free T4 Today Z13.29 - Encounter for screening for other suspected endocrine disorder Vitamin B12 and Folate Today Z13.21 - Encounter for screening for nutritional disorder Comprehensive Met. Panel Today M81.0 - Age-related osteoporosis without current pathological fracture, Z00.00 - Encounter for general adult medical examination without abnormal findings Vitamin D 25-OH Total Today Z13.21 - Encounter for screening for nutritional disorder Complete Blood Count Auto Diff Today M81.0 - Age-related osteoporosis without c urrent pathological fracture, Z13.0 - Encounter for screening for diseases of the blood and blood-forming organs and certain disorders involving the immune mechanism Lipid Panel Today Z13.220 - Encounter for screening for lipoid disorders
--- OUTSIDE RECORDS SUMMARY | 2025-02-04 10:08 | XMS_ITS | Clinical Summary ---
Author Organization [facility] Address [address] [place] [address] Care Team Providers Care Credit Union Examiner Name Role Phone Jorge Walton Primary Care Provider [phone] Allergies No known active allergies Medications doxycycline [...] patients) (1 - 1-dose 75+ series) 2021 Alcohol/Substance Use Screening 03/13/2024 Depression Screening and Follow-Up 03/13/2024 Fall Risk Screening 03/13/2024 Health Care Proxy Review 03/13/2024 Social Drivers of Health Annual Screening 03/13/2024 Influenza Vaccine (#1) 2024 2, 12/15/2020, 12/16/2019, Additional history exists COVID-19 Vaccine (2024- season) 2024 03/23/2021, 06/29/2020, 06/06/2020 Hepatitis B Vaccines Aged Out No long er eligible based on patient's age to complete this topic Care Teams Credit Union Examiner Relationship Specialty Start Date End Date Jorge Walton [address] [place] [address] Dr [place], [place] [id number] PCP - General Internal Medicine 09/25/23
== END 2025-02-04 10:03 | disposition home or self-care (01) ==
LOC: HO.HMCH 09:11
DX: Z00.00 Encounter for general adult medical examination without abnormal findings (principal); R03.0 Elevated blood-pressure reading, without diagnosis of hypertension; I73.00 Raynaud's syndrome without gangrene; M81.0 Age-related osteoporosis without current pathological fracture; R91.1 Solitary pulmonary nodule; L71.9 Rosacea, unspecified; H81.09 Meniere's disease, unspecified ear; L90.0 Lichen sclerosus et atrophicus; Z23 Encounter for immunization

== ENCOUNTER 2025-02-04 09:11 | Outpatient (REF) | payer MEDICARE, SELFPAY ==
[2025-02-04 10:23] LABS: MANUAL DIFF FLAG NO
[2025-02-04 10:34] LABS: Hematocrit 46.8 % (37.0-47.0); Hemoglobin 15.5 g/dl (12.0-16.0); Imm Gran Abs Auto 0.01 X10*3/uL (0.00-0.03); Imm Gran Pct Auto 0.2 % (0.0-0.4); Lymphocytes Absolute Auto 1.1 X10*3/uL (1.2-4.9); Mean Corpuscular HGB Conc 33.1 g/dl (31.0-35.0); Mean Corpuscular Hemoglobin 29.6 pg (27.0-33.0); Mean Corpuscular Volume 89.3 fL (80.0-98.0); NRBC Abs Auto 0.000 X10*3/uL (0.0-0.012); NRBC Pct Auto 0.0 /100WBC (0.0-0.2); Platelet Count 204 X10*3/uL (160-400); Red Blood Count 5.24 X10*6/uL (4.20-5.50); White Blood Count 4.7 X10*3/uL (4.8-10.8)
[2025-02-04 11:13] LABS: Alanine Aminotransferase 15 U/L (0-31); Albumin Level 5.1 g/dL (3.5-5.0); Alkaline Phosphatase 72 U/L (39-117); Anion Gap 13 (12-20); Aspartate Amino Transferase 25 U/L (5-31); Blood Urea Nitrogen 14 mg/dL (9-16); Calcium 10.1 mg/dL (8.4-10.2); Carbon Dioxide 29 mmol/L (22-29); Chloride 104 mmol/L (96-108); Cholesterol 251 mg/dL (<200); Estimated Glomerular Filt Rate > 60; HDL Cholesterol 90 mg/dL (>40); Potassium 3.7 mmol/L (3.3-5.1); Sodium 142 mmol/L (135-145); Total Protein 7.9 g/dL (6.5-8.0); Triglycerides 101 mg/dL (<150)
[2025-02-04 11:43] LABS: Folate 14.9 ng/mL (> or = 4.0); Vitamin B12 489 pg/mL (200-900)
--- OUTSIDE RECORDS SUMMARY | 2025-02-04 12:16 | XMS_ITS | Clinical Summary ---
Author Organization [facility] Address [address] [place] [address] Phone Care Team Providers Care Wharf Labourer Name Role Phone Physician, No Pcp Primary Care Provider Unavaila ble Allergies No known active allergies Medications No known medications Encounters Date Type Department Care Team Description 12/24/2024 12:08 PM EDT - 12/24/2024 1:04 PM EDT Emergency [facility] [address] [place] [address] Foot sprain, left, initial encounter (Primary Dx) Discharge Disposition: Home or Self Care from Last 3 Months Social History Tobacco Use Types Packs/Day Years Used Date Smoking Tobacco: Never Smokeless Tobacco: Never Tobacco Cessation:Counseling Given: Not Answered Comments Unknown Sex and Gender Information Value Date Recorded Sex Assigned at Not on file Legal Sex Female 3:04 PM EST Gender Identity Not on file Sexual Orientation Not on file Obstetrics History Last Filed Vital Signs Vital Sign Reading Time Taken Comments Blood Pressure 163/77 12/24/2024 11:30 AM EDT Pulse 70 12/24/2024 11:30 AM EDT Temperature 36.5 C (97.7 F) 12/24/2024 11:30 AM EDT Respiratory Rate 16 12/24/2024 11:30 AM EDT Oxygen Saturation 100% 12/24/2024 11:30 AM EDT Inhaled Oxygen Concentration - - Weight 38.6 kg (85 lb) 12/24/2024 11:30 AM EDT Height 154.9 cm (5' 1 ) 12/24/2024 11:30 AM EDT Body Mass Index 16.06 12/24/2024 11:30 AM EDT Plan of Treatment Health Maintenance Due Date Last Done Comments DTaP,Tdap,and Td Vaccines (1 - Tdap) 1964 Hepatitis B Vaccines (2 of 3 - 19+ 3-dose series) 06/05/2014 05/08/2014 Zoster Vaccines (3 of 3) 05/10/2018 03/15/2018, 12/11 Pneumococcal Vaccine: 50+ Years (2 of 2 - PCV) 11/24/2018 11/24/2017 RSV Immunization Adult Patients (1 - 1-dose 75+ series) 2021 Depression Screening 03/13/2024 COVID-19 Vaccine (4 - season) 2024 03/23/2021, 06/29/2020, 06/06/2020 Influenza Vaccine (#1) 2024 , 11/22/2021, 12/15/2020, Additional history exists Falls Risk Assessment 12/24/2024 Hepatitis C Screening 12/24/2024 Medicare Annual Wellness Visit 12/24/2024 Osteoporosis Screening (Bone Density Screening) 12/24/2024 Social Influencers of Health Screening 12/24/2024 HIB Vaccines Aged Out No longer eligi ble based on patient's age to complete this topic HPV Vaccines Aged Out No longer eligi ble based on patient's age to complete this topic Hepatitis A Vaccines Aged Out No long er eligible based on patient's age to complete this topic IPV Vaccines Aged Out No longer eligi ble based on patient's age to complete this topic MMR Vaccines Aged Out No longer eligi ble based on patient's age to complete this topic Meningococcal ACWY Vaccine Aged Out N o longer eligible based on patient's age to complete this topic Meningococcal B Vaccine Aged Out No l onger eligible based on patient's age to complete this topic RSV Immunization Patients Under 20 months Aged Out No longer eligible based on patient's age to complete this topic Varicella Vaccines Aged Out No longer eligible based on patient's age to complete this topic Procedures Procedure Name Priority Date/Time Associated Diagnosis Comments XR FOOT 3+ VIEWS LEFT STAT 12/24/2024 12:28 PM EDT from Last 3 Months Results * XR Foot 3+ Views Left (12/24/2024 12:28 PM EDT) Anatomical Region Laterality Modality Lower Extremities, Foot Left Radiogra phic Imaging 12/24/2024 12:4 0 PM EDT Impressions 12/24/2024 12:41 PM EDT No acute findings. -------- FINAL REPORT -------- Dictated By: Rosas Mike Dictated Date: 12/24/2024 12:40 ET Assigned Physician: Rosas Mike Reviewed and Electronically Signed By: Rosas Mike Signed Date: 12/24/2024 12:41 ET Workstation ID: [id number] Transcribed By: Self Edit Transcribed Date: 12/24/2024 12:40 ET Narrative 12/24/2024 12:41 PM EDT PROCEDURE: Radiographs of the left foot. HISTORY: pain lateral. COMPARISON: None. FINDINGS: 3 views of the left foot. Bones are diffusely demineralized. Bipartite medial sesamoid. Minimal plantar calcaneal spur. No fracture or malalignment. Procedure Note Rosas Mike MD - 12/24/2024 PROCEDURE: Radiographs of the left foot. HISTORY: pain lateral. COMPARISON: None. FINDINGS: 3 views of the left foot. Bones are diffusely demineralized. Bipartite medial sesamoid. Minimalplantar calcaneal spur. No fracture or malalignment. IMPRESSION: No acute findings. -------- FINAL REPORT -------- Dictated By: Rosas Mike Dictated Date: 12/24/2024 12:40 ET Assigned Physician: Rosas Mike Reviewed and Electronically Signed By: Rosas Mike Signed Date: 12/24/2024 12:41 ET Workstation ID: [id number] Transcribed By: Self Edit Transcribed Date: 12/24/2024 12:40 ET us Prieto MUÑOZ IMG XR PROCEDURES Final Res ult from Last 3 Months Insurance [employer] - [place] MEDICARE ADVANTAGE Care Teams Wharf Labourer Relationship Specialty Start Date End Date Physician, No Pcp PCP - General 12/24/24
== END 2025-02-04 09:12 | disposition home or self-care (01) ==
LOC: HO.LAB 09:11
DX: Z00.00 Encounter for general adult medical examination without abnormal findings (principal); J45.909 Unspecified asthma, uncomplicated; M81.0 Age-related osteoporosis without current pathological fracture; R03.0 Elevated blood-pressure reading, without diagnosis of hypertension; I73.00 Raynaud's syndrome without gangrene; R91.1 Solitary pulmonary nodule; L71.9 Rosacea, unspecified; H81.09 Meniere's disease, unspecified ear; L90.0 Lichen sclerosus et atrophicus; Z23 Encounter for immunization; Z13.29 Encounter for screening for other suspected endocrine disorder; Z13.21 Encounter for screening for nutritional disorder; Z13.0 Encounter for screening for diseases of the blood and blood-forming organs and certain disorders involving the immune mechanism; Z13.220 Encounter for screening for lipoid disorders; Z91.81 History of falling
CPT/HCPCS: 36415; 80053; 80061; 82306; 82607; 82746; 84443; 85025; 90471; 90714; 96127; 99397